=== PATIENT | female | born 1950 | race Two or more races ===

== ENCOUNTER 2022-10-08 12:26 | Emergency (ER) | payer OTHER ==
[~2022-10-08] VITALS: Ht 154.9 cm; Wt 58.6 kg
[2022-10-08 13:09] LABS: Basophils # (auto) 0.1 10 ^3/uL (0-0.2); Eosinophils # (auto) 0.2 10 ^3/uL (0-0.8); Eosinophils % (auto) 3.1 % (0.0-7.0); Hematocrit 43.3 % (36.0-46.0); Hemoglobin 14.5 g/dL (12.2-16.2); Lymphocytes # (auto) 1.2 10 ^3/uL (0.4-5.4); Lymphocytes % (auto) 19.9 % (10.0-50.0); Mean Corpuscular Hgb Conc. 33.4 g/dL (32.0-36.0); Monocytes # (auto) 0.4 10 ^3/uL (0-1.3); Neutrophils # (auto) 4.3 10 ^3/uL (1.6-8.6); Nucleated Red Blood Cells % 0.1 %; Red Blood Cells 4.98 10^6/uL (4.0-5.20); Red Cell Distribution Width 13.2 % (11.8-14.3); White Blood Cell 6.2 10^3/uL (4.4-10.8)
[2022-10-08 13:16] LABS: Urine Bacteria NONE SEEN /hpf (None Seen); Urine Blood Negative /uL (Negative); Urine Hyaline Cast FEW /lpf (0 - 2); Urine Mucus FEW (None Seen); Urine WBC 1 /hpf (0 - 5)
[2022-10-08 13:22] LABS: INR 1.04 (0.9-1.15); Partial Thromboplastin Time 26.9 SEC (24.5-34.5)
[2022-10-08 13:41] LABS: Blood Alcohol < 3.0 mg/dL (<10); Lipase 113 U/L (73-393)
[2022-10-08 13:41] LABS: Alcohol, Urine < 3.0 mg/dL (0-10); Barbiturate Scree,Urine NEGATIVE (NEGATIVE); Benzodiazephine Screen, Urine NEGATIVE (NEGATIVE); Cocaine Screen, Urine NEGATIVE (NEGATIVE); Opiate Scree,Urine NEGATIVE (NEGATIVE); Phencyclidine Screen, Urine NEGATIVE (NEGATIVE)
[2022-10-08 13:44] LABS: Creatine Kinase IFCC 174 U/L (26-192)
[2022-10-08 13:48] LABS: Amphetamine Screen, Urine NEGATIVE (NEGATIVE); Cannabinoid Screen, Urine POSITIVE (NEGATIVE)
[2022-10-08 13:52] LABS: Albumin 3.6 g/dL (3.4-5.0); Calcium 8.9 mg/dL (8.5-10.1); Potassium 3.3 mmol/L (3.5-5.1)
[2022-10-08] MEDS ORDERED: IOHEXOL 350 MG/ML 100ML IJ ONE (13:56)
[2022-10-08 13:57] LABS: Bilirubin, Total 0.4 mg/dL (0.2-1.0); Total Protein 7.3 g/dL (6.4-8.2)
[2022-10-08 20:30] VITALS: BP 127/71
== END 2022-10-08 14:51 | disposition short-term general hospital (02) ==
LOC: ER 12:26
DX: R55 Syncope and collapse (principal); R79.1 Abnormal coagulation profile
CPT/HCPCS: 36415; 70450; 71045; 71275; 72125; 80053; 80307; 80320; 81001; 82550; 83690; 83880; 84484; 85025; 85379; 85610; 85730; 93005; 99285; Q9967